=== PATIENT | male | born 1995 | race Asian ===

== ENCOUNTER 2021-09-01 05:45 | Emergency (ER) | payer OTHER ==
[2021-09-01 06:03] VITALS: BP 101/64; PULSE 82; TEMP 98.1; BMI 23.1
[2021-09-01] MEDS ORDERED: ACETAMINOPHEN 500 MG TABLET (FP) PO ONE (08:01)
[2021-09-01] MEDS ORDERED: LIDOCAINE 5% TOPICAL PATCH TP ONE (08:01)
[2021-09-01] MEDS ORDERED: LIDOCAINE 5% TOPICAL PATCH ONE (08:44)
[2021-09-01] MEDS ORDERED: ACETAMINOPHEN 500 MG TABLET (FP) ONE (08:44)
[2021-09-01 08:53] LABS: BASO % 0.9 % (0-2.0); EOS % 4.4 % (0-4.5); HEMATOCRIT 43.9 % (35.4-49); LYMPH % 35.4 % (8-40); MCH 31.6 pg (25.7-33.7); MCHC 34.1 g/dl (32.0-35.9); MEAN CELL VOLUME 92.7 fl (80-96); MEAN PLT VOLUME 9.7 fl (7.5-11.1); MONO % 6.9 % (3.8-10.2); NEUT % 52.4 % (42.8-82.8); PLATELET COUNT 188 10^3/uL (134-434); RBC 4.74 M/mm3 (4.00-5.60); RDW 13.2 % (11.9-15.9); WHITE BLOOD COUNT 7.1 K/mm3 (4.0-10.0)
[2021-09-01 09:05] LABS: INR 0.98 (0.83-1.09); PROTHROMBIN TIME (PATIENT) 11.3 SEC (9.7-13.0)
[2021-09-01 09:08] LABS: ACTIVATED PTT 31.4 SECONDS (25.2-36.5)
[2021-09-01 09:22] LABS: CALCIUM 9.2 mg/dL (8.5-10.1)
[2021-09-01 09:23] LABS: ALBUMIN 4.1 g/dl (3.4-5.0)
[2021-09-01 09:26] LABS: CREATININE 0.7 mg/dL (0.55-1.3)
[2021-09-01 09:27] LABS: BILIRUBIN,TOTAL 0.3 mg/dL (0.2-1); TOT PROT 7.3 g/dl (6.4-8.2)
[2021-09-01] MEDS ORDERED: LIDOCAINE PATCH REMOVAL MC ONE (20:00)
== END 2021-09-01 12:20 | disposition home or self-care (01) ==
LOC: JER 05:45
DX: R07.9 Chest pain, unspecified (principal); M54.50 Low back pain, unspecified
CPT/HCPCS: 36415; 71046-TC-FY; 80053; 84484; 85025; 85379; 85610; 85730; 93005; 93010; 99285-25

== ENCOUNTER 2023-10-30 19:35 | Emergency (ER) | payer OTHER ==
[2023-10-30 20:02] VITALS: BP 139/86; PULSE 75; RESP 16; TEMP 98.9; BMI 27.3
[2023-10-30] MEDS ORDERED: ACETAMINOPHEN 500 MG TABLET (FP) ONE (21:34)
[2023-10-30] MEDS: ACETAMINOPHEN 500 MG TABLET (FP) PO ONE (21:36)
== END 2023-10-31 00:58 | disposition home or self-care (01) ==
LOC: JER 19:35 → JERFT 19:35 → JER 10-31 00:58
DX: S61.213A Laceration without foreign body of left middle finger without damage to nail, initial encounter (principal); S61.317A Laceration without foreign body of left little finger with damage to nail, initial encounter; W26.8XXA Contact with other sharp object(s), not elsewhere classified, initial encounter
CPT/HCPCS: 73130-TC-LT-FY; 99283-25

== ENCOUNTER 2024-04-04 23:41 | Emergency (ER) | payer OTHER ==
[2024-04-04 23:46] VITALS: BP 125/81; PULSE 79; RESP 20; TEMP 98.2; BMI 26.9
== END 2024-04-05 00:54 | disposition home or self-care (01) ==
LOC: JER 23:41
DX: S70.01XA Contusion of right hip, initial encounter (principal); S80.02XA Contusion of left knee, initial encounter; W19.XXXA Unspecified fall, initial encounter; Y99.0 Civilian activity done for income or pay
CPT/HCPCS: 73502-TC-RT-FY; 73562-TC-LT-FY; 99284-25